=== PATIENT | male | born 1960 ===

== ENCOUNTER 2021-11-11 07:14 | Outpatient (REF) | payer OTHER, SELFPAY ==
--- NOTE | ~2021-11-11 | MR_ITS ---
EXAMINATION: MRI BRAIN WITHOUT CONTRAST CLINICAL INFORMATION: 61-year-old with Parkinson's disease. COMPARISON: None TECHNIQUE: Multiplanar multisequence MR imaging of the brain was done without IV contrast. FINDINGS: BRAIN VOLUME: Within normal limits within the limitations of qualitative assessment. STRUCTURAL: No malformations. BRAIN AND MENINGES: DWI sequence demonstrates no restricted diffusion to suggest acute or subacute cerebral ischemia. The brain is normal in morphology. Gradient refocused imaging demonstrates no evidence for hemorrhage, hemosiderin staining or abnormal mineralization. There is a punctate left frontal subcortical white matter T2 hyperintensity near the convexity which is nonspecific. Remainder of the brain is normal in signal intensity. No extra-axial fluid collections, space-occupying process or mass effect are identified. VENTRICLES AND SUBARACHNOID SPACES: The ventricular system and subarachnoid spaces are within normal limits without hydrocephalus. ORBITAL STRUCTURES: The visualized orbital structures are grossly unremarkable within the limitations of the study. VASCULAR: Signal voids are noted in the visualized major intracranial vessels. OSSEOUS STRUCTURES, SINUSES/MASTOIDS, EXTRACRANIAL SOFT TISSUES: Unremarkable. MR/MR head/brain wo con IMPRESSION: 1. No acute intracranial process. No evidence for infarction, hemorrhage, space-occupying process, mass effect or hydrocephalus. 2. A single punctate subcortical left frontal white matter T2 hyperintensity is noted which is nonspecific. 3. Otherwise unremarkable study.
== END 2021-11-11 07:15 | disposition home or self-care (01) ==
LOC: HO.MRI 07:14
PROVIDERS: Visit Provider Psychiatry & Neurology Neurology
DX: G20 Parkinson's disease (principal)
CPT/HCPCS: 70551